=== PATIENT | male | born 1950 | race Caucasian/White ===

== ENCOUNTER 2016-07-22 03:26 | Inpatient (IN) | payer BC ==
[~2016-07-22] VITALS: Ht 172.7 cm; Wt 73.1 kg
[~2016-07-22 03:26] MED LIST: ASPI-535; LOSA50TA2 PO; VALA500T32
[2016-07-22 03:31] VITALS: Ht 172.7 cm; Wt 73.1 kg
[2016-07-22] MEDS ORDERED: IPRATROPIUM (NEB) 0.5 MG/2.5 ML AMP INH STA (03:39)
[2016-07-22] MEDS ORDERED: ACETAMINOPHEN 325 MG TAB PO STA (03:39)
[2016-07-22] MEDS ORDERED: SODIUM CHLORIDE 0.9% 1L BAG IV* STA (03:39)
[2016-07-22] MEDS ORDERED: ALBUTEROL 0.5% (NEB) 2.5 MG/0.5 ML AMP INH STA (03:39)
[2016-07-22 04:18] LABS: ADD SCAN DIFF NO
[2016-07-22 04:28] LABS: ABNORMAL IP MESSAGE 1; BASOPHILS % 0.3 % (0.0-2.0); EOSINOPHILS % 0.2 % (0.0-7.0); HEMATOCRIT 42.3 % (42.0-52.0); HEMOGLOBIN 14.8 g/dl (14.0-18.0); LYMPHOCYTES # 0.5 10^3/ul (0.8-2.9); LYMPHOCYTES % 5.8 % (15.0-51.0); MEAN CORPUSCULAR HEMOGLOBIN 33.3 pg (29.0-33.0); MEAN CORPUSCULAR VOLUME 95.3 fl (82.0-101.0); MEAN PLATELET VOLUME 10.2 fl (7.4-10.4); MONOCYTE # 0.2 10^3/ul (0.3-0.9); MONOCYTES % 2.8 % (0.0-11.0); NEUTROPHIL # 7.8 10^3/ul (1.6-7.5); NEUTROPHILS % 90.6 % (39.0-77.0); PLATELET COUNT 219 10^3/UL (140-415); RED BLOOD COUNT 4.44 10^6/ul (4.70-6.10); RED CELL DISTRIBUTION WIDTH 13.2 % (11.5-14.5); WHITE BLOOD COUNT 8.7 10^3/ul (4.8-10.8)
--- NOTE | 2016-07-22 04:28 | RADRPT ---
PROCEDURE: Chest. CLINICAL INDICATION: Chest pain. TECHNIQUE: Single frontal view of the chest was obtained. COMPARISON: 11/19/2015. FINDINGS: The cardiac silhouette is within normal limits. The aortic arch is unremarkable. There are increas ed perihilar markings bilaterally. There is no pleural effusion. There is no pneumothorax. IMPRESSION: Bilateral increased perihilar markings could represent interstitial edema or infiltrates. .Spenser Reyes MD, MD Date Time Electronically viewed and signed by .Spenser Reyes MD, MD on 07/22/2016 04:28 .T/
[2016-07-22 04:32] LABS: ADD UMIC NO; URINE BILIRUBIN (Dip) NEGATIVE (NEGATIVE); URINE BLOOD (Dip) NEGATIVE (NEGATIVE); URINE COLOR YELLOW (YELLOW); URINE GLUCOSE (Dip) NEGATIVE (NEGATIVE); URINE KETONES (Dip) NEGATIVE (NEGATIVE); URINE LEUKOCYTE ESTERASE (Dip) NEGATIVE (NEGATIVE); URINE NITRITE (Dip) NEGATIVE (NEGATIVE); URINE TOTAL PROTEIN (Dip) NEGATIVE (NEGATIVE); URINE UROBILINOGEN (Dip) 0.2 E.U./dL (0.1-1.0)
[2016-07-22 04:47] LABS: ALBUMIN 3.9 g/dl (3.3-4.9); CHLORIDE 103 mmol/L (97-110); SODIUM 143 mmol/L (135-144)
[2016-07-22 04:49] LABS: CREATININE 1.04 mg/dl (0.61-1.24)
[2016-07-22 04:50] LABS: ALANINE AMINOTRANSFERASE 33 IU/L (13-69); ALBUMIN/GLOBULIN RATIO 1.44; ALKALINE PHOSPHATASE 52 IU/L (42-121); ANION GAP 16 (8-16); ASPARTATE AMINO TRANSFERASE 30 IU/L (15-46); BILIRUBIN,INDIRECT 1.6 mg/dl (0-1.1); BILIRUBIN,TOTAL 1.6 mg/dl (0.2-1.3); BLOOD UREA NITROGEN 22 mg/dl (7-20); CALCIUM 9.1 mg/dl (8.4-10.2); CARBON DIOXIDE 28 mmol/L (21-31); GLUCOSE 113 mg/dl (70-220); TOTAL PROTEIN 6.6 g/dl (6.1-8.1)
[2016-07-22 04:51] LABS: INR 1.17; PARTIAL THROMBOPLASTIN TIME 26.2 Sec (25.0-35.0); PT RATIO 1.2
--- NOTE | 2016-07-22 05:32 | ERA ---
ER Documentation Chief Complaint Date/Time DATE: 07/22/16 TIME: 05:39 Chief Complaint COUGH OFF AND ON 2 MONTHS, FEVER CHILLS TONIGHT HPI Is a very pleasant 66-year-old gentleman who comes in with complaints of chills sudden onset tonight and then alternating fevers. Patient said is been struggling with a cough on and off for the past 2 months being treated by his primary care physician. Today he said his cough started becoming productive and he started having alternating fevers and chills. Also complains of body aches. No other current complaints. ROS All systems reviewed and are negative except as per history of present illness. Medications Home Meds Reported Medications Losartan Potassium* (Cozaar*) 50 Mg Tablet, 50 MG PO DAILY 11/14/11 Valacyclovir Hcl* (Valtrex*) 500 Mg Tablet 07/01/09 Aspirin Ec (Aspir 81) 81 Mg Tablet. 07/01/09 Allergies Allergies: Coded Allergies: No Known Drug Allergies (Verified Allergy, Mild, 07/22/16) PMhx/Soc History of Surgery: Yes (umbilical hernia repair, tonsillectomy) Anesthesia Reaction: No Hx Neurological Disorder: Yes (NEUROPATHY) Hx Respiratory Disorders: No Hx Cardiac Disorders: Yes (HTN) Hx Psychiatric Problems: No Hx Miscellaneous Medical Probl: Yes (dermomyositis) Hx Alcohol Use: Yes (occassional) Hx Substance Use: No Hx Tobacco Use: No Smoking Status: Never smoker Physical Exam Vitals Vital Signs Date Time Temp Pulse Resp B/P Pulse Ox O2 Delivery O2 Flow Rate FiO2 07/22/16 04:30 81 22 97 21 07/22/16 03:59 Nasal Cannula 07/22/16 03:31 102.3 92 22 176/74 97 Physical Exam Const: [] Head: Atraumatic Eyes: Normal Conjunctiva ENT: Normal External Ears, Nose and Mouth. Neck: Full range of motion..~ No meningismus. Resp: Clear to auscultation bilaterally Cardio: Regular rate and rhythm, no murmurs Abd: Soft, non tender, non distended. Normal bowel sounds Skin: No petechiae or rashes Back: No midline or flank tenderness Ext: No cyanosis, or edema Neur: Awake and alert Psych: Normal Mood and Affect Result Diagram: 07/22/16 0353 Results 24 hrs Laboratory Tests Test 07/22/16 03:53 07/22/16 03:55 Activated Partial Thromboplast Time 26.2Sec Basophils # 0.010^3/ul Basophils % 0.3% Eosinophils # 0.010^3/ul Eosinophils % 0.2% Hematocrit 42.3% Hemoglobin 14.8g/dl INR International Normalized Ratio 1.17 Lymphocytes # 0.510^3/ul Lymphocytes % 5.8% Mean Corpuscular Hemoglobin 33.3pg Mean Corpuscular Hemoglobin Concent 35.0g/dl Mean Corpuscular Volume 95.3fl Mean Platelet Volume 10.2fl Monocytes # 0.210^3/ul Monocytes % 2.8% Neutrophils # 7.810^3/ul Neutrophils % 90.6% Nucleated Red Blood Cells # 0.010^3/ul Nucleated Red Blood Cells % 0.0/100WBC Platelet Count 91597^3/UL Prothrombin Time 15.0Sec Prothrombin Time Ratio 1.2 Red Blood Count 4.4410^6/ul Red Cell Distribution Width 13.2% White Blood Count 8.710^3/ul Urine Bilirubin NEGATIVE Urine Clarity CLEAR Urine Color YELLOW Urine Glucose NEGATIVE% Urine Hemoglobin NEGATIVE Urine Ketones NEGATIVE Urine Leukocyte Esterase NEGATIVE Urine Nitrite NEGATIVE Urine Specific [place] >=1.030 Urine Total Protein NEGATIVE Urine Urobilinogen 0.2 E.U./dL Urine pH 5.5 Current Medications Medications (Trade) Dose Ordered Sig/Isaac Route PRN Reason Start Time Stop Time Status Last Admin Dose Admin Sodium Chloride (NS) 2,270 ml BOLUS OVER 2 HOURS STAT IV* 07/22/16 03:39 07/22/16 03:41 DC 07/22/16 04:14 Acetaminophen (Tylenol Tab) 650 mg ONCE STAT PO 07/22/16 03:39 07/22/16 03:42 DC 07/22/16 04:15 Albuterol (Proventil 0.5% (Neb)) 10 mg ONCE STAT INH 07/22/16 03:39 07/22/16 03:42 DC 07/22/16 04:29 Ipratropium Vancleave (Atrovent 0.02% (Neb)) 1 mg ONCE STAT INH 07/22/16 03:39 07/22/16 03:42 DC 07/22/16 04:29 Procedures/MDM EKG: Rate/Rhythm: Normal Sinus Rhythm QRS, ST, T-waves: No changes consistent w/ acute ischemia Impression: No evidence of ischemia or arrhythmia Chest X-ray 1V Interpreted by me: Soft Tissue: No acute abnormalities Bones: No acute abnormalities Mediastinum/Cardiac Silhouette/Lungs: Bilateral infiltrates. Impression: Bilateral pneumonia Medical decision-making: Patient has blisters bilateral pneumonia. Started on broad-spectrum antibiotics. Cultures. Patient to be admitted to primary care physician Dr. Franco who is kindly accepted the patient to service Departure Diagnosis: Primary Impression: Bilateral pneumonia Qualified Code: J18.9 - Pneumonia of both lungs due to infectious organism, unspecified part of lung Condition: Stable PEPE FULLER Jul 22, 2016 05:39
[2016-07-22 05:35] LABS: TROPONIN-I < 0.012 ng/ml (0.00-0.12)
[2016-07-22] MEDS ORDERED: PIPER-TAZO 3.375 GM IV (PMX) 100 ML IVPB ONE (06:00)
[2016-07-22] MEDS ORDERED: VANCOMYCIN 1 GM (PMX) 250 ML IVPB SCH (06:00)
[2016-07-22 06:22] VITALS: TEMP 100.1
[2016-07-22] MEDS ORDERED: IMU50 PO ×2 (07:16)
[2016-07-22] MEDS ORDERED: HYDR200T5 PO (07:18)
[2016-07-22 07:33] VITALS: PULSE 89
[2016-07-22 07:58] VITALS: BP 123/57; RESP 22
[2016-07-22] MEDS ORDERED: HYDROCODONE/APAP (5/325) TAB PO PRN (09:00)
[2016-07-22] MEDS ORDERED: NACL 0.9% 3 ML SYG IV SCH (09:00)
[2016-07-22] MEDS ORDERED: ACETAMINOPHEN 325 MG TAB PO PRN (09:00)
[2016-07-22] MEDS ORDERED: DOCUSATE SODIUM 100 MG CAP PO PRN (09:00)
[2016-07-22] MEDS ORDERED: ONDANSETRON 4 MG TAB PO PRN (09:00)
[2016-07-22] MEDS ORDERED: VANCOMYCIN IV PER PHARMACY XX SCH (09:00)
[2016-07-22 09:40] LABS: AADO2 Arterial 24.6 mmHg (7.0-24.0); Allen Test ACCEPTAB; Arterial Base Excess -1.9 mmol/L (-3.0-3); Arterial COHb 0.2 % (0.0-3.0); Arterial Fraction of Oxyhgb 95.9 % (93.0-99.0); Arterial HCO3 21.5 mmol/L (22.0-26.0); Arterial MetHb 0.1 % (0.0-1.5); Arterial Total Hemglobin 13.9 g/dl (12.0-18.0); MODE ROOM AIR
[2016-07-22] MEDS: AZITHROMYCIN 500MG/NS (PMX) 250 ML IV SCH (10:47)
[2016-07-22] MEDS: FAMOTIDINE 20 MG TAB PO SCH ×2 (10:48→20:41)
[2016-07-22] MEDS: CEFTRIAXONE 1 GM/50 ML (PMX) 50 ML IVPB SCH (10:48)
[2016-07-22] MEDS: HEPARIN 5,000 UNIT/0.5 ML SYG SC SCH ×2 (14:00→21:57)
[2016-07-22] MEDS: ALBUTEROL 0.083% (NEB) 2.5 MG/3 ML AMP HHN SCH ×2 (17:55→20:59)
[2016-07-22] MEDS: ACETYLCYSTEINE 20% 4 ML VIAL NEB SCH ×2 (18:01→21:07)
[2016-07-22] MEDS: VANCOMYCIN 750 MG in SOD CHLORIDE 0.9% 150 ML IVPB SCH (18:10)
[2016-07-22 19:00] VITALS: BP 111/58; RESP 18
[2016-07-22] MEDS: ZOLPIDEM 5 MG TAB PO PRN (21:23)
[2016-07-22] MEDS: GUAIFENESIN/DM 5ML CUP PO PRN (21:23)
--- NOTE | 2016-07-23 00:48 | HP ---
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 He had a bit of a bronchitis and actually was treated after a negative chest x-ray with an inhaler. Abisai de jesus note he is on some immunologic medications. He was doing well. His cough was better. His breath ing was better. Overnight from the to the 22 of July he developed the abrupt onset of a sig nificantly much more severe cough with scant sputum production and a temperature to 102 degrees with madelyn rigors and sweats. This was a first time event. He presented to the emergency room where he was advised he had bilateral pneumonia visible on the chest x-ray. Please note as an outpatient he is on azathioprine 100 in the morning, 50 in the afternoon and Plaquenil 200 b.i.d. He has had tra [place]eno out of the country roughly 2 months ago to the [facility]. 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 PAST MEDICAL HISTORY: 1. Dermatomyositis. 2. Benign positional vertigo, paroxysmal. 3. Peripheral neuropathy. 4. Hypertension. 5. History of HSV 2. 6. Status post left inguinal hernia repair. 7. Status post umbilical hernia repair. 8. Status post T and A. 9. Benign prostatic hypertrophy. 10. Remote history of prostatitis. 11. History of varicella. 12. Left knee torn meniscus. 13. Status post vasectomy. 14. Status post left knee arthroscopy. ALLERGIES: HE HAS NO KNOWN MEDICAL ALLERGIES. MEDICATIONS: His current medications are: 1. Plaquenil 200 b.i.d. 2. Imuran 100 mg in the morning, 50 mg in the evening. 3. Diovan 80 mg once a day. HABITS: He is a nonsmoker. He drinks 4 ounces of wine roughly 3 days a week or less. No usage of recreational drugs. FAMILY HISTORY: Positive for hypertension, positive for diabetes, positive for coronary artery dise ase. VACCINES: He had tetanus and pneumococcal vaccines 11/01/2010. SOCIAL HISTORY: He was born in [place] and raised there. 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 He was in 2010 and lives with his . PHYSICAL EXAMINATION: GENERAL: At time of physical exam, he is a charming male in no madelyn distress. VITAL SIGNS: He actually had temperature of 102.3 degrees, pulse was 90, respirations 20, blood pres sure 131/86, pulse oximetry is 98% on room air. HEENT: NC/AT; PERRL, EOMI, anicteric. Fundi were not well visualized; tympanic membranes were with out note; oropharynx demonstrates no lesions. NECK: Supple. There is a midline trachea. There is no thyromegaly; pulses are 2+ without bruits. RESPIRATORY: Clear to auscultation and percussion. CARDIAC: Demonstrated no JVD, regular rate and rhythm without rubs, murmurs or gallops. Respiratory exam did demonstrate some scattered wheezes. ABDOMEN: Soft, nontender, active bowel sounds, no hepatosplenomegaly, no CVA tenderness, no hernias , no bruits. EXTREMITIES: Demonstrate no clubbing, cyanosis, or edema. ASSESSMENT AND PLAN: Community-acquired pneumonia. The main concerns are that given the Imuran and Plaquenil there is a possibility that you could stretch and say he has immunocompromise. While it i s possible to see a granulocytosis or a leukopenia with the Plaquenil, he does not have this at this time. He is coming in with a fairly appropriate sepsis syndrome with a minimally elevated lactate, the high fevers, the tachycardia and the tachypnea and elevated white count. He is being placed on aggressive IV antibiotic therapy and will be monitored closely. We will go ahead and get a sputum culture and maintain him on his medications. With any luck he should actually turn around relativel y quickly and be able to be discharged within 48 hours. Respectfully yours, Dictated By: JOSEF VAN MD, JR/MALINDA Conf#: [id number] DID#: [id number]
[2016-07-23] MEDS: ALBUTEROL 0.083% (NEB) 2.5 MG/3 ML AMP HHN SCH ×4 (02:00→20:52)
[2016-07-23] MEDS: ACETYLCYSTEINE 20% 4 ML VIAL NEB SCH ×4 (02:00→20:53)
[2016-07-23] MEDS: HEPARIN 5,000 UNIT/0.5 ML SYG SC SCH ×3 (04:46→22:00)
[2016-07-23] MEDS: VANCOMYCIN 750 MG in SOD CHLORIDE 0.9% 150 ML IVPB SCH ×2 (05:31→18:01)
[2016-07-23 06:09] LABS: ADD SCAN DIFF NO; BASOPHILS % 0.3 % (0.0-2.0); EOSINOPHILS # 0.1 10^3/ul (0.0-0.5); EOSINOPHILS % 1.3 % (0.0-7.0); HEMATOCRIT 38.3 % (42.0-52.0); HEMOGLOBIN 13.1 g/dl (14.0-18.0); LYMPHOCYTES # 0.8 10^3/ul (0.8-2.9); MEAN CORPUSCULAR HEMOGLOBIN 33.6 pg (29.0-33.0); MEAN CORPUSCULAR HGB CONC 34.2 g/dl (32.0-37.0); MEAN CORPUSCULAR VOLUME 98.2 fl (82.0-101.0); MEAN PLATELET VOLUME 10.2 fl (7.4-10.4); MONOCYTE # 0.5 10^3/ul (0.3-0.9); MONOCYTES % 7.2 % (0.0-11.0); NEUTROPHIL # 4.9 10^3/ul (1.6-7.5); NEUTROPHILS % 78.9 % (39.0-77.0); PLATELET COUNT 165 10^3/UL (140-415); RED CELL DISTRIBUTION WIDTH 13.5 % (11.5-14.5); WHITE BLOOD COUNT 6.2 10^3/ul (4.8-10.8)
[2016-07-23 06:27] LABS: POTASSIUM 4.3 mmol/L (3.5-5.1)
[2016-07-23 06:30] LABS: CALCIUM 8.9 mg/dl (8.4-10.2); CREATININE 0.9 mg/dl (0.61-1.24)
[2016-07-23 07:43] VITALS: BP 138/67; RESP 20
--- NOTE | 2016-07-23 08:21 | RADRPT ---
Vent Rate: 56 bpm RR Interval: 0 msec MA Interval: 156 msec QRS Duration: 138 msec QT Interval: 464 msec QTC Interval: 447 msec P-R-T [place]: 54 - 54 - 0 degrees Sinus bradycardia Right bundle branch block T wave abnormality, consider inferolateral ischemia Abnormal ECG Electronically Signed By: Jason Maldonado [id number]
--- NOTE | 2016-07-23 08:42 | PN ---
Date/Time of Note Date/Time of Note DATE: 07/23/16 TIME: 08:40 Assessment/Plan VTE Prophylaxis VTE Prophylaxis Intervention: heparin Lines/Catheters IV C[facility]ter Type [facility]from [facility] [place] [facility] Urinary Cath still in place: No Assessment/Plan Problems: (1) BPH (benign prostatic hypertrophy) with urinary retention Status: Chronic Comment: Resume tamsulosin. He had been on outpatient low-dose 5 mg daily Cialis which is not on the hospital formulary (2) Bilateral pneumonia Status: Acute Comment: He is improving subjectively and objectively nicely. Blood cultures are positive but on initial glance this looks like contamination which is not unusual from the technique from our emergency room Qualifiers: Pneumonia type: due to unspecified organism Lung location: unspecified part of lung Qualified Code: J18.9 - Pneumonia of both lungs due to infectious organism, unspecified part of lung (3) Systemic inflammatory response syndrome (SIRS) due to infection Status: Resolved Comment: Improved nicely lactic acid resolved he is no longer in sepsis Subjective 24 Hr Interval Summary Free Text/Dictation Patient reports he is feeling better Constitutional: no complaints (No further fevers chills or sweats) ENT: no complaints Respiratory: cough (Cough persists but nonproductive and last), shortness of breath (Shortness of breath has improved) Cardiovascular: no complaints Gastrointestinal: no complaints Genitourinary: no complaints Exam/Review of Systems Vital Signs Vitals Vital Signs Date Time Temp Pulse Resp B/P Pulse Ox O2 Delivery O2 Flow Rate FiO2 07/23/16 07:43 98.2 59 20 138/67 99 07/22/16 20:59 21 07/22/16 07:33 Room Air Intake and Output 07/22/16 07/22/16 07/23/16 15:00 23:00 07:00 Intake Total 300 ml 320 ml 480 ml Balance 300 ml 320 ml 480 ml Results Result Diagram: 07/23/16 0500 07/23/16 0520 Results 24 hrs Laboratory Tests Test 07/23/16 05:00 07/23/16 05:20 Basophils # 0.0 Basophils % 0.3 Eosinophils # 0.1 Eosinophils % 1.3 Hematocrit 38.3 L Hemoglobin 13.1 L Lymphocytes # 0.8 Lymphocytes % 12.0 L Mean Corpuscular Hemoglobin 33.6 H Mean Corpuscular Hemoglobin Concent 34.2 Mean Corpuscular Volume 98.2 Mean Platelet Volume 10.2 Monocytes # 0.5 Monocytes % 7.2 Neutrophils # 4.9 Neutrophils % 78.9 H Nucleated Red Blood Cells # 0.0 Nucleated Red Blood Cells % 0.0 Platelet Count 165 # Red Blood Count 3.90 L Red Cell Distribution Width 13.5 White Blood Count 6.2 # Anion Gap 13 Blood Urea Nitrogen 16 Calcium Level 8.9 Carbon Dioxide Level 28 Chloride Level 109 Creatinine 0.90 Glucose Level 96 Potassium Level 4.3 Sodium Level 146 H Medications Medications Current Medications Ondansetron HCl (Zofran Tab) 4 mg Q6H PRN PO NAUSEA AND/OR VOMITING; Start at 09:00 Acetaminophen (Tylenol Tab) 650 mg Q6H PRN PO PAIN LEVEL 1-3 OR FEVER Last administered on 07/22/16 16:22; Admin Dose 650 MG; Start 07/22/16 at 09:00 Acetaminophen/ Hydrocodone Bitart ([place] (5/325)) 1 tab Q6H PRN PO MODERATE PAIN LEVEL 4-6; Start 07/22/16 at 09:00 Docusate Sodium (Colace) 100 mg Q12H PRN PO CONSTIPATION; Start 07/22/16 at 09: 00 Famotidine (Pepcid) 20 mg Q12 PO Last administered on 07/22/16 20:41; Admin Dose 20 MG; Start 07/22/16 at 09:00 Heparin Sodium (Porcine) 5000 unit 5,000 unit Q8 SC ; Start 07/22/16 at 14:00 Ceftriaxone Sodium 50 ml @ 100 mls/hr Q24H IVPB Last administered on 10:48; Admin Dose 100 MLS/HR; Start 07/22/16 at 09:00 Azithromycin 250 ml @ 250 mls/hr Q24H IV Last administered on 07/22/16 10:47 ; Admin Dose 250 MLS/HR; Start 07/22/16 at 09:00 Vancomycin HCl/ Sodium Chloride (Vancocin/NS) 150 ml @ 75 mls/hr Q12H IVPB Last administered on 07/23/16 05:31; Admin Dose 75 MLS/HR; Start 07/22/16 at 18 :00 Guaifenesin/ Dextromethorphan (Robitussin Dm Liquid Cup) 15 ml Q6H PRN PO COUGH Last administered on 07/22/16t 21:23; Admin Dose 15 ML; Start 07/22/16 at 16:30 JOSEF VAN MD Jul 23, 2016 08:42
[2016-07-23] MEDS: CEFTRIAXONE 1 GM/50 ML (PMX) 50 ML IVPB SCH (08:46)
[2016-07-23] MEDS: FAMOTIDINE 20 MG TAB PO SCH ×2 (08:48→20:12)
[2016-07-23] MEDS ORDERED: TAMSULOSIN (SR) 0.4 MG CAP PO ONE (09:00)
[2016-07-23] MEDS: GUAIFENESIN/DM 5ML CUP PO PRN (10:05)
[2016-07-23] MEDS: AZITHROMYCIN 500MG/NS (PMX) 250 ML IV SCH (10:06)
[2016-07-23] MEDS: AZATHIOPRINE 50 MG TAB PO SCH (10:06)
[2016-07-23] MEDS: HYDROXYCHLOROQUINE 200 MG TAB PO SCH ×2 (10:16→20:12)
--- NOTE | 2016-07-23 10:20 | RADRPT ---
PROCEDURE: XR Chest. CLINICAL INDICATION: Follow up pneumonia. TECHNIQUE: AP view of the chest was obtained. COMPARISON: 07/22/2016 FINDINGS: The cardiomediastinal silhouette is within normal limits. There is redemonstration of bilateral americo hilar streaky infiltrates, slightly improved compared to the prior examination on 07/22/2016. No fo leanne consolidation is seen. No signs of pleural fluid or pneumothorax are seen. The osseous structure s and soft tissues are unremarkable. IMPRESSION: 1. Redemonstration of bilateral perihilar patchy infiltrates, slightly improved compared to prior e xamination from 05/23/2016. RPTAT: DD .Issa Batres MD, MD Date Time Electronically viewed and signed by .Issa Batres MD, on 07/23/2016 10:20 .S/
[2016-07-23 19:41] VITALS: BP 113/80; RESP 20
[2016-07-23 20:00] VITALS: RESP 20
[2016-07-23] MEDS: TAMSULOSIN (SR) 0.4 MG CAP PO SCH (20:12)
[2016-07-24] MEDS ORDERED: LIDOCAINE 2% JELLY 30 ML TOP ONE ×2 (00:10→04:45)
[2016-07-24] MEDS: ACETYLCYSTEINE 20% 4 ML VIAL NEB SCH ×4 (01:04→20:00)
[2016-07-24] MEDS: ALBUTEROL 0.083% (NEB) 2.5 MG/3 ML AMP HHN SCH ×4 (01:04→20:00)
[2016-07-24] MEDS: VANCOMYCIN 750 MG in SOD CHLORIDE 0.9% 150 ML IVPB SCH ×3 (01:38→18:18)
[2016-07-24] MEDS ORDERED: morphine 10 MG INJ INJ PRN (05:23)
[2016-07-24] MEDS ORDERED: LORAZEPAM 0.5 MG TAB PO PRN (05:30)
[2016-07-24] MEDS: morphine 2 MG INJ IV PRN ×2 (05:34→07:27)
[2016-07-24] MEDS: HEPARIN 5,000 UNIT/0.5 ML SYG SC SCH ×3 (06:00→21:16)
[2016-07-24 08:06] VITALS: BP 141/87; RESP 18
[2016-07-24] MEDS: FAMOTIDINE 20 MG TAB PO SCH ×2 (08:10→21:04)
[2016-07-24] MEDS: AZATHIOPRINE 50 MG TAB PO SCH (08:10)
[2016-07-24] MEDS: HYDROXYCHLOROQUINE 200 MG TAB PO SCH ×2 (08:10→21:04)
[2016-07-24] MEDS: CEFTRIAXONE 1 GM/50 ML (PMX) 50 ML IVPB SCH (08:10)
[2016-07-24] MEDS: AZITHROMYCIN 500MG/NS (PMX) 250 ML IV SCH (09:06)
--- NOTE | 2016-07-24 10:41 | CONS ---
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 He was admitted w ith a temperature of 102. The patient has been treated for his bronchitis and yesterday he started having difficulty urinating, where he has to urinate frequently and small amounts. Then, he was fou nd to have urinary retention and straight catheterization was done on him and about 700 mL drained. Last night, he had the same problem where he could not urinate. The nurses had difficulty catheter izing him and then I had them use a red Schaffer catheter and they were able to catheterize him arou nd 1:00 this morning and drained about 600 mL. Then, the patient 3 hours later he felt full again a nd they tried to catheterize him and they were meeting some resistance. Therefore, they stopped try ing and I came in this morning and did insert a Soria catheter for him and over 700 mL to 900 mL yordy ined out. The patient does have a history of difficulty voiding in the past, where there were times that he could not hold his urine and he had urinary urgency. He usually does have nocturia about o nce a night. He denies any dysuria. He describes his urinary stream as fair. He has been taking 5 mg of Cialis daily for the past 2 to 3 years and that does help his urination. He had one time abo ut 6 years ago 1 episode of gross hematuria that was painful, most likely had an infection. PAST MEDICAL HISTORY: He does have a history of dermatomyositis and is on medication for that. He also has benign positional vertigo, peripheral neuropathy, history of hypertension, history of herpe s virus type 2, history of varicella. PAST SURGICAL HISTORY: Includes a left inguinal hernia repair, umbilical hernia repair, tonsillecto my, history of vasectomy and left knee arthroscopy for torn meniscus. ALLERGIES: THE PATIENT HAS NO KNOWN DRUG ALLERGIES. SOCIAL HISTORY: He does not smoke. He drinks about 4 ounces of wine 3 days a week. No history of drug abuse. FAMILY HISTORY: Positive for hypertension, diabetes and coronary artery disease. HOME MEDICATIONS: Included: 1. Plaquenil 200 mg twice a day. 2. Imuran 100 mg in the morning and 50 mg in the evening 3. Diovan 80 mg once a day. 4. He also has been taking a baby aspirin. 5. Vitamin A. 6. Fish oil. The medication that he is on presently include: 1. Lorazepam 0.5 mg every 6 hours for anxiety. 2. Morphine sulfate 2 mg p.r.n. for pain. 3. Vancomycin IV. 4. Tamsulosin 0.4 mg. 5. Plaquenil 200 mg b.i.d. 6. Imuran 50 mg daily. 7. Ambien 5 mg for sleep at bedtime. 8. Albuterol q.6h. 9. Robitussin for cough. 10. Subcutaneous Heparin. 11. Mucomyst. 12. Zofran p.r.n. for nausea 13. Tylenol for the pain. 14. [place] for the pain. 15. Pepcid 20 mg q.12h. p.o. 16. Ceftriaxone IV. 17. Azithromycin IV. 18. Vancomycin per protocol. PHYSICAL EXAMINATION: GENERAL: Reveals a 66-year-old male who weighs about 73.1 kg. He is 68 inches tall. VITAL SIGNS: Show a temperature of 98.4, pulse 76, respirations 18, blood pressure 141/87. NECK: Supple. There is no cervical adenopathy. ABDOMEN: Soft. There is no abdominal mass palpable or tenderness. There are no hernias. He does have a scar from prior hernia repair. EXTERNAL GENITALIA: Normal. The bladder; however, appeared to be distended. RECTAL: The prostate is soft but large. The prostate had been evaluated in the office previously a nd it is about 40 mL volume cadena. It is mildly enlarged, but not too large. EXTREMITIES: Normal. LABORATORY DATA: His CBC shows a white count of 6.2, hemoglobin 13.1, hematocrit 38.3, platelet cou nt 165,000. BUN is 16, creatinine 0.9, sodium 146, potassium 4.3, chloride 109, CO2 of 28. PT is 1 5.0, INR 1.17. Urinalysis on admission was negative. Urine culture no growth. The chest x-ray that was done on admission showed bilateral increased perihilar markings that could represent interstitial edema or infiltrates. The patient also had a repeated chest x-ray today that showed redemonstration of bilateral perihilar patchy infiltrates, slightly improved compared to susy or examination from 2 days earlier. IMPRESSION: Urinary retention. The patient does have benign prostatic hypertrophy, but the prostat e is not too big to cause retention by itself. RECOMMENDATION: I went ahead and inserted a 16-Serbian Soria catheter for him. I did prep the genit al area, then gave him 2% lidocaine gel. I waited for it for 5 minutes. Then, inserted the 16-Fren ch Soria catheter without any problem and about 900 mL of urine drained out. The Soria catheter was connected to a drainage bag. We shall keep the Soria catheter in for now and continue him on the Flomax. 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 Dictated By: KRISTOFER JOHNSON/MALINDA Conf#: [id number] DID#: [id number]
--- NOTE | 2016-07-24 16:34 | PDOCDIS ---
Discharge Instructions CONDITION Patient Condition: Stable HOME CARE INSTRUCTIONS: Diet Instructions: Regular ACTIVITY: Activity Restrictions: Slowly Increase Activity FOLLOW UP/APPOINTMENTS Appointments Dr. Franco [address] Siddiqui as scheduled SCHOOL/WORK RELEASE May return to School/Work with: Return to work once cleared by Drs. Siddiqui and BLU Hernandez MD Jul 24, 2016 16:34
--- NOTE | 2016-07-24 16:41 | PN ---
Date/Time of Note Date/Time of Note DATE: 07/24/16 TIME: 16:36 Assessment/Plan VTE Prophylaxis VTE Prophylaxis Intervention: ambulation Lines/Catheters IV [facility]ter [facility] (from [facility] Saline Lock Urinary Cath still in place: Yes (urinary retention) Reason Cath still needed: urinary retention Assessment/Plan Problems: (1) Bilateral pneumonia Status: Acute Comment: On antibiotic therapy. Slight improvement in chest X-ray findings on yesterday's X-ray. 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 Siddiqui participation in this case. Patient will be discharged home with zhang catheter in place to be followed up as outpatient. (3) Systemic inflammatory response syndrome (SIRS) due to infection Status: Resolved Subjective 24 Hr Interval Summary Constitutional: no complaints Eyes: no complaints ENT: no complaints Respiratory: cough, pleuritic pain (none), shortness of breath (minimal), sputum (none), wheezing (none) Cardiovascular: no complaints Gastrointestinal: no complaints Genitourinary: other (retention) Musculoskeletal: no complaints Skin: no complaints Neurologic: no complaints Endocrine: no complaints Lymphatic: no complaints Psychological: no complaints Immunologic: no complaints Additional Comments anxious to go home Exam/Review of Systems Vital Signs Vitals Vital Signs Date Time Temp Pulse Resp B/P Pulse Ox O2 Delivery O2 Flow Rate FiO2 07/24/16 08:06 98.4 76 18 141/87 99 07/24/16 01:04 21 07/22/16 07:33 Room Air Intake and Output 07/23/16 07/23/16 07/24/16 15:00 23:00 07:00 Intake Total 150 ml 1910 ml 150 ml Output Total 1100 ml 700 ml Balance 150 ml 810 ml -550 ml Exam Constitutional: alert, oriented, well developed Psych: no complaints Head: normocephalic Eyes: EOMI, PERRL, nl conjunctiva Neck: supple Respiratory: clear to auscultation, crackles/rales (none), normal air movement , wheezing (none) Cardiovascular: nl pulses, regular rate and rhythm Gastrointestinal: soft Genitourinary - Male: nl penis (zhang in place) Musculoskeletal: nl extremities to inspection Extremities: normal pulses Results Result Diagram: 07/23/16 0500 07/23/16 0520 Results 24 hrs Laboratory Tests Test 07/23/16 16:45 07/24/16 12:40 Vancomycin Level Trough 6.8 L Prostate Specific Antigen 10.8 H Medications Medications Current Medications Ondansetron HCl (Zofran Tab) 4 mg Q6H PRN PO NAUSEA AND/OR VOMITING; Start at 09:00 Acetaminophen (Tylenol Tab) 650 mg Q6H PRN PO PAIN LEVEL 1-3 OR FEVER Last administered on 07/22/16 16:22; Admin Dose 650 MG; Start 07/22/16 at 09:00 Acetaminophen/ Hydrocodone Bitart ([place] (5/325)) 1 tab Q6H PRN PO MODERATE PAIN LEVEL 4-6 Last administered on 07/23/16 21:59; Admin Dose 1 TAB; Start at 09:00 Docusate Sodium (Colace) 100 mg Q12H PRN PO CONSTIPATION; Start 07/22/16 at 09: 00 Famotidine (Pepcid) 20 mg Q12 PO Last administered on 07/24/16 08:10; Admin Dose 20 MG; Start 07/22/16 at 09:00 Heparin Sodium (Porcine) 5000 unit 5,000 unit Q8 SC ; Start 07/22/16 at 14:00 Ceftriaxone Sodium 50 ml @ 100 mls/hr Q24H IVPB Last administered on 08:10; Admin Dose 100 MLS/HR; Start 07/22/16 at 09:00 Azithromycin (Zithromax 500mg/ NS (Pmx)) 250 ml @ 250 mls/hr Q24H IV Last administered on 07/24/16 09:06; Admin Dose 250 MLS/HR; Start 07/22/16 at 09:00 Guaifenesin/ Dextromethorphan (Robitussin Dm Liquid Cup) 15 ml Q6H PRN PO COUGH Last administered on 07/23/16 10:05; Admin Dose 15 ML; Start 07/22/16 at 16:30 Tamsulosin HCl (Flomax) 0.4 mg HS PO Last administered on 07/23/16 20:12; Admin Dose 0.4 MG; Start 07/23/16 at 21:00 Hydroxychloroquine Sulfate (Plaquenil) 200 mg BID PO Last administered on 08:10; Admin Dose 200 MG; Start 07/23/16 at 09:00 Azathioprine 50 mg 50 mg DAILY PO Last administered on 07/24/16 08:10; Admin Dose 50 MG; Start 07/23/16 at 09:00 Vancomycin HCl/ Sodium Chloride (Vancocin/NS) 150 ml @ 75 mls/hr Q8H IVPB Last administered on 07/24/16 10:50; Admin Dose 75 MLS/HR; Start 07/24/16 at 02 :00 Lorazepam (Ativan) 0.5 mg Q6H PRN PO ANXIETY Last administered on 07/24/16 06: 51; Admin Dose 0.5 MG; Start 07/24/16 at 05:30 Morphine Sulfate (morphine) 2 mg Q2H PRN IV PAIN Last administered on 07:27; Admin Dose 2 MG; Start 07/24/16 at 05:28 Miscellaneous Information (*Rx Drug Level Order Reminder*) VANCOMYCIN TROUGH AT 1700 ONCE ONCE XX ; Start 07/24/16 at 17:00; Stop 07/24/16 at 17:01 BLU THOMPSON MD Jul 24, 2016 16:41
[2016-07-24 20:45] VITALS: BP 130/72; RESP 20
[2016-07-24] MEDS: ZOLPIDEM 5 MG TAB PO PRN (21:04)
[2016-07-24] MEDS: GUAIFENESIN/DM 5ML CUP PO PRN (21:04)
[2016-07-24] MEDS: TAMSULOSIN (SR) 0.4 MG CAP PO SCH (21:04)
[2016-07-25] MEDS: ALBUTEROL 0.083% (NEB) 2.5 MG/3 ML AMP HHN SCH ×2 (01:10→07:32)
[2016-07-25] MEDS: ACETYLCYSTEINE 20% 4 ML VIAL NEB SCH ×2 (01:11→07:33)
[2016-07-25] MEDS: VANCOMYCIN 1 GM in NS 250 ML IVPB SCH ×2 (02:06→10:00)
[2016-07-25] MEDS: HEPARIN 5,000 UNIT/0.5 ML SYG SC SCH (05:07)
[2016-07-25 06:14] LABS: CREATININE 0.81 mg/dl (0.61-1.24)
--- NOTE | 2016-07-25 07:31 | RADRPT ---
PROCEDURE: Chest Radiograph. CLINICAL INDICATION: Pneumonia TECHNIQUE: Single frontal chest radiograph. COMPARISON: Chest radiograph 07/23/2016 FINDINGS: The cardiomediastinal silhouette is within normal limits. There are improving bilateral perihilar i nfiltrates, with near complete resolution on the left. No pleural effusion is seen. The bones are intact. IMPRESSION: 1. Improving perihilar infiltrates, with near complete resolution on the left. RPTAT: HJBF .Clifford Meza MD, MD Date Time Electronically viewed and signed by .Clifford Meza MD, on 07/25/2016 07:31 .B/
[2016-07-25 07:47] VITALS: BP 139/74; RESP 20
[2016-07-25] MEDS: AZATHIOPRINE 50 MG TAB PO SCH (08:20)
[2016-07-25] MEDS: FAMOTIDINE 20 MG TAB PO SCH (08:20)
[2016-07-25] MEDS: HYDROXYCHLOROQUINE 200 MG TAB PO SCH (08:20)
[2016-07-25] MEDS: GUAIFENESIN/DM 5ML CUP PO PRN (08:20)
[2016-07-25] MEDS: CEFTRIAXONE 1 GM/50 ML (PMX) 50 ML IVPB SCH (08:20)
--- NOTE | 2016-07-25 09:06 | PN ---
Date/Time of Note Date/Time of Note DATE: 07/25/16 TIME: 09:00 Assessment/Plan VTE Prophylaxis VTE Prophylaxis Intervention: ambulation Lines/Catheters IV Catheter Type (from Nrsg): Saline Lock Urinary Cath still in place: Yes (urinary retention) Reason Cath still needed: urinary retention Subjective 24 Hr Interval Summary Free Text/Dictation afebrile, some cough xray essentially clear wbc, chems all ok up and walking, fern catheter ok alert, lungs clear, hands ok, no edema, catheter draining normally imp is resolving pneumonia, prob community aquired tho is on immunosuppression dermatomyositis bph with urinary retention plan ok for dc after antibiotics today, can dc afterwards and no vanco today off work until a week from Thursday, dc catheter on thursday and follow up with dr sandoval see us in office snext week for repeat cxr, call if fever or increasing cough Exam/Review of Systems Vital Signs Vitals Vital Signs Date Time Temp Pulse Resp B/P Pulse Ox O2 Delivery O2 Flow Rate FiO2 07/25/16 07:47 97.9 71 20 139/74 95 07/25/16 07:35 21 07/22/16 07:33 Room Air Intake and Output 07/24/16 07/24/16 07/25/16 14:59 22:59 06:59 Intake Total 150 ml 950 ml 250 ml Output Total 800 ml Balance 150 ml 150 ml 250 ml Results Result Diagram: 07/23/16 0500 07/25/16 0515 Results 24 hrs Laboratory Tests Test 07/24/16 12:40 07/24/16 17:00 07/25/16 05:15 Prostate Specific Antigen 10.8 H Vancomycin Level Trough 9.4 L Blood Urea Nitrogen 12 Creatinine 0.81 Medications Medications Current Medications Ondansetron HCl (Zofran Tab) 4 mg Q6H PRN PO NAUSEA AND/OR VOMITING; Start at 09:00 Acetaminophen (Tylenol Tab) 650 mg Q6H PRN PO PAIN LEVEL 1-3 OR FEVER Last administered on 07/22/16 16:22; Admin Dose 650 MG; Start 07/22/16 at 09:00 Acetaminophen/ Hydrocodone Bitart ([place] (5/325)) 1 tab Q6H PRN PO MODERATE PAIN LEVEL 4-6 Last administered on 07/23/16 21:59; Admin Dose 1 TAB; Start at 09:00 Docusate Sodium (Colace) 100 mg Q12H PRN PO CONSTIPATION; Start 07/22/16 at 09: 00 Famotidine (Pepcid) 20 mg Q12 PO Last administered on 07/25/16 08:20; Admin Dose 20 MG; Start 07/22/16 at 09:00 Heparin Sodium (Porcine) 5000 unit 5,000 unit Q8 SC ; Start 07/22/16 at 14:00 Ceftriaxone Sodium 50 ml @ 100 mls/hr Q24H IVPB Last administered on 08:20; Admin Dose 100 MLS/HR; Start 07/22/16 at 09:00 Azithromycin (Zithromax 500mg/ NS (Pmx)) 250 ml @ 250 mls/hr Q24H IV Last administered on 07/24/16 09:06; Admin Dose 250 MLS/HR; Start 07/22/16 at 09:00 Guaifenesin/ Dextromethorphan (Robitussin Dm Liquid Cup) 15 ml Q6H PRN PO COUGH Last administered on 07/25/16 08:20; Admin Dose 15 ML; Start 07/22/16 at 16:30 Tamsulosin HCl (Flomax) 0.4 mg HS PO Last administered on 07/24/16 21:04; Admin Dose 0.4 MG; Start 07/23/16 at 21:00 Hydroxychloroquine Sulfate (Plaquenil) 200 mg BID PO Last administered on 08:20; Admin Dose 200 MG; Start 07/23/16 at 09:00 Azathioprine (Imuran) 50 mg DAILY PO Last administered on 07/25/16 08:20; Admin Dose 50 MG; Start 07/23/16 at 09:00 Lorazepam (Ativan) 0.5 mg Q6H PRN PO ANXIETY Last administered on 07/24/16 06: 51; Admin Dose 0.5 MG; Start 07/24/16 at 05:30 Morphine Sulfate 2 mg 2 mg Q2H PRN IV PAIN Last administered on 07/24/16 07:27 ; Admin Dose 2 MG; Start 07/24/16 at 05:28 Vancomycin HCl (Vancocin) 250 ml @ 125 mls/hr Q8H IVPB Last administered on 02:06; Admin Dose 125 MLS/HR; Start 07/25/16 at 02:00 BRENDA EDWARDS MD Jul 25, 2016 09:06
[2016-07-25] MEDS: AZITHROMYCIN 500MG/NS (PMX) 250 ML IV SCH (09:07)
== END 2016-07-25 12:05 | disposition home or self-care (01) | DRG 195 ==
LOC: E/R 03:26 → MS2 05:34
PROVIDERS: ADMIT Internal Medicine; ATTEND Internal Medicine
DX: J18.9 Pneumonia, unspecified organism (principal); I10 Essential (primary) hypertension; R33.9 Retention of urine, unspecified; N40.0 Benign prostatic hyperplasia without lower urinary tract symptoms
CPT/HCPCS: 36415; 36600; 71010; 71020; 80048; 80053; 80202; 81003; 82565; 82803; 83605; 84153; 84154; 84484; 84520; 85025; 85610; 85730; 87040; 87086; 93005; 94640; 94644; 94664; 96374; 96375; A4310; J0456; J0696; J1644; J2270; J3370; J7030; J7500

== ENCOUNTER 2016-07-27 17:17 | Emergency (ER) | payer BC ==
[~2016-07-27] VITALS: Ht 172.7 cm; Wt 74.0 kg
[~2016-07-27 17:17] MED LIST changes: +HYDR200T5 PO; +IMU50 PO; -LOSA50TA2 PO; -VALA500T32
[2016-07-27 17:20] VITALS: Ht 172.7 cm; Wt 74.0 kg
[2016-07-27] MEDS ORDERED: LIDOCAINE 2% 20 ML UROJET SYRINGE MM ONE (17:30)
--- NOTE | 2016-07-27 17:34 | ERD ---
ER Documentation Chief Complaint Date/Time DATE: 07/27/16 TIME: 17:32 Chief Complaint Complains of inability HPI Very pleasant 66-year-old male history of BPH who presents emergency room with urinary retention. The patient was recently seen for urinary retention and had a Soria catheter. He self discontinued today with a trial of urination without success. He describes lower suprapubic abdominal distention and fullness. Inability to urinate. Moderate discomfort. ROS All systems reviewed and are negative except as per history of present illness. Medications Home Meds Reported Medications Hydroxychloroquine Sulfate* (Plaquenil*) 200 Mg Tab, 400 MG PO DAILY, TAB 07/22/16 Azathioprine* (Imuran*) 50 Mg Tab, 50 MG PO QPM, TAB 07/22/16 Azathioprine* (Imuran*) 50 Mg Tab, 100 MG PO QAM, TAB 07/22/16 Aspirin Ec (Aspir 81) 81 Mg Tablet. 07/01/09 Discontinued Reported Medications Losartan Potassium* (Cozaar*) 50 Mg Tablet, 50 MG PO DAILY 11/14/11 Valacyclovir Hcl* (Valtrex*) 500 Mg Tablet 07/01/09 Allergies Allergies: Coded Allergies: No Known Drug Allergies (Verified Allergy, Mild, 07/22/16) PMhx/Soc History of Surgery: Yes (tonsileectomy, umbilical hernia repair , imguinal hernia repair 2008) Anesthesia Reaction: No Hx Neurological Disorder: Yes (slight lower ext neuropathy tx with chircopracter) Hx Respiratory Disorders: Yes (bronchitis ) Hx Cardiac Disorders: Yes (htn ) Hx Psychiatric Problems: No Hx Miscellaneous Medical Probl: No Hx Alcohol Use: Yes (1 glass wine daily ) Hx Substance Use: No Hx Tobacco Use: No FmHx Family History: No diabetes Physical Exam Vitals Vital Signs Date Time Temp Pulse Resp B/P Pulse Ox O2 Delivery O2 Flow Rate FiO2 07/27/16 17:20 97.7 82 20 190/83 98 Physical Exam General: Well developed, well nourished, no acute distress Head: Normocephalic, atraumatic. Eyes: EOM intact ENT: Moist mucous membranes Neck: Full ROM Respiratory: No respiratory distress Cardiovascular: Good capillary refil Abdominal: Nondistended, suprapubic fullness without rebound or guarding, no peritonitis : Deferred MSK: No edema, no unilateral swelling, 5/5 strength Neurologic: Alert and oriented, moving all extremities, normal speech, steady gait Skin: No rash Psych: Normal mood Results 24 hrs Current Medications Medications (Trade) Dose Ordered Sig/Isaac Route PRN Reason Start Time Stop Time Status Last Admin Dose Admin Lidocaine (Lidocaine 2% Urojet) 20 ml ONCE ONCE MM 07/27/16 17:30 07/27/16 17:31 DC Procedures/MDM The patient presents with urinary retention likely secondary to BPH. The patient has a urologist. He is taking Flomax. He had a trial of urination today with failure. Patient will benefit from repeat placement of Soria catheter. A Soria catheter was placed, the patient was given a leg bag. No indication for antibiotics currently. He has close follow-up with the urologist. Continue Flomax. Return precautions discussed. The patient states understanding and feels comfortable with the plan. We discussed follow up with the patient's primary care doctor within 24 to 48 hours as needed. We also discussed return to the emergency room for worsening symptoms or worsening condition. Outpatient referral: Dr. Siddiqui Discharge Medications: None required Departure Diagnosis: Primary Impression: Urinary retention Condition: Stable Patient Instructions: Urinary Retention, Male Referrals: KRISTOFER SIDDIQUI MD Additional Instructions: Call your primary care doctor TOMORROW for an appointment during the next 1 WEEK.Tell the medical unit secretary that you were referred from this facility.See the doctor sooner or return here if your condition worsens before your appointment time. DAVID OWEN MD Jul 27, 2016 17:34
== END 2016-07-27 18:19 | disposition home or self-care (01) ==
LOC: E/R 17:17
DX: R33.9 Retention of urine, unspecified (principal); I10 Essential (primary) hypertension; Z79.82 Long term (current) use of aspirin

== ENCOUNTER → 2016-09-20 | Outpatient (CLI) | payer BC ==
[2016-09-20 15:21] LABS: ADD SCAN DIFF NO
[2016-09-20 15:37] LABS: BASOPHILS % 0.7 % (0.0-2.0); EOSINOPHILS % 0.9 % (0.0-7.0); HEMATOCRIT 43.8 % (42.0-52.0); HEMOGLOBIN 15.4 g/dl (14.0-18.0); LYMPHOCYTES # 0.8 10^3/ul (0.8-2.9); LYMPHOCYTES % 18.1 % (15.0-51.0); MEAN CORPUSCULAR HEMOGLOBIN 33.6 pg (29.0-33.0); MEAN CORPUSCULAR HGB CONC 35.2 g/dl (32.0-37.0); MEAN CORPUSCULAR VOLUME 95.6 fl (82.0-101.0); MONOCYTE # 0.5 10^3/ul (0.3-0.9); MONOCYTES % 11.3 % (0.0-11.0); PLATELET COUNT 170 10^3/UL (140-415); RED BLOOD COUNT 4.58 10^6/ul (4.70-6.10); RED CELL DISTRIBUTION WIDTH 12.8 % (11.5-14.5); WHITE BLOOD COUNT 4.4 10^3/ul (4.8-10.8)
[2016-09-20 15:49] LABS: ALBUMIN 4.2 g/dl (3.3-4.9); CHLORIDE 102 mmol/L (97-110)
[2016-09-20 15:50] LABS: SODIUM 142 mmol/L (135-144)
[2016-09-20 15:52] LABS: BILIRUBIN,INDIRECT 1.4 mg/dl (0-1.1); BILIRUBIN,TOTAL 1.4 mg/dl (0.2-1.3); CREATININE 1.01 mg/dl (0.61-1.24)
[2016-09-20 15:53] LABS: ALANINE AMINOTRANSFERASE 35 IU/L (13-69); ALBUMIN/GLOBULIN RATIO 1.55; ALKALINE PHOSPHATASE 37 IU/L (42-121); ANION GAP 15 (8-16); ASPARTATE AMINO TRANSFERASE 30 IU/L (15-46); BLOOD UREA NITROGEN 21 mg/dl (7-20); CARBON DIOXIDE 29 mmol/L (21-31); GLUCOSE 76 mg/dl (70-220); TOTAL PROTEIN 6.9 g/dl (6.1-8.1)
[2016-09-20 15:54] LABS: CALCIUM 9.2 mg/dl (8.4-10.2); CREATINE KINASE 110 IU/L (23-200)
[2016-09-20 15:57] LABS: C-REACTIVE PROTEIN < 0.5 mg/dl (0.0-0.9)
[2016-09-20 16:26] LABS: CK-MB 1.86 ng/ml (0.0-2.4); TROPONIN-I < 0.012 ng/ml (0.00-0.12)
== END | disposition home or self-care (01) ==
LOC: LAB 12:21
PROVIDERS: ATTEND Internal Medicine
DX: M33.90 Dermatopolymyositis, unspecified, organ involvement unspecified (principal)
CPT/HCPCS: 80053; 82550; 82553; 84484; 85025; 85651; 86140

== ENCOUNTER 2016-12-19 20:10 | Emergency (ER) | payer BC ==
[~2016-12-19] VITALS: Ht 172.7 cm; Wt 74.0 kg
[~2016-12-19 20:10] MED LIST changes: +AZAT50TA31 PO; -IMU50 PO
[2016-12-19 20:16] VITALS: Ht 172.7 cm; Wt 74.0 kg
--- NOTE | 2016-12-19 21:01 | ERD ---
ER Documentation Chief Complaint Date/Time DATE: 12/19/16 TIME: 20:58 Chief Complaint got exposed to a pt w/meningitis, just want himself to be checked HPI This patient is a 66-year-old male with past medical history of autoimmune disease presenting to the emergency department after exposure to a patient with meningitis. The patient is currently asymptomatic. 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 He denies dizziness, neck pain, fevers, chills, or other symptoms. He was exposed over the past 2 days. ROS All systems reviewed and are negative except as per history of present illness. Medications Home Meds Reported Medications Hydroxychloroquine Sulfate* (Plaquenil*) 200 Mg Tab, 400 MG PO DAILY, TAB 07/22/16 Azathioprine* (Imuran*) 50 Mg Tab, 50 MG PO QPM, TAB 07/22/16 Azathioprine* (Imuran*) 50 Mg Tab, 100 MG PO QAM, TAB 07/22/16 Aspirin Ec (Aspir 81) 81 Mg Tablet. 07/01/09 Allergies Allergies: Coded Allergies: No Known Drug Allergies (Verified Allergy, Mild, 07/22/16) PMhx/Soc History of Surgery: Yes (tonsileectomy, umbilical hernia repair 's, imguinal hernia repair 2008) Anesthesia Reaction: No Hx Neurological Disorder: Yes (slight lower ext neuropathy tx with chircopracter) Hx Respiratory Disorders: Yes (bronchitis ) Hx Cardiac Disorders: Yes (htn ) Hx Psychiatric Problems: No Hx Miscellaneous Medical Probl: No Hx Alcohol Use: Yes (1 glass wine daily ) Hx Substance Use: No Hx Tobacco Use: No Physical Exam Vitals Vital Signs Date Time Temp Pulse Resp B/P Pulse Ox O2 Delivery O2 Flow Rate FiO2 12/19/16 20:16 97.8 68 18 142/81 100 Physical Exam Const: Nontoxic, well-appearing male in no acute distress. Head: Atraumatic Eyes: Normal Conjunctiva ENT: Normal External Ears, Nose and Mouth. Neck: Full range of motion..~ No meningismus. Resp: Clear to auscultation bilaterally Cardio: Regular rate and rhythm, no murmurs Skin: No petechiae or rashes Back: No midline or flank tenderness Ext: No cyanosis, or edema Neur: Awake and alert Psych: Normal Mood and Affect Results 24 hrs Current Medications Medications (Trade) Dose Ordered Sig/Isaac Route PRN Reason Start Time Stop Time Status Last Admin Dose Admin Ciprofloxacin (Cipro) 500 mg ONCE ONCE PO 12/19/16 21:30 12/19/16 21:31 Procedures/MDM 66-year-old male presenting to the emergency department seeking prophylactic treatment for meningitis after being exposed. The patient has no meningeal signs. I will give him 1 dose of 500 mg ciprofloxacin orally in the department as a prophylactic treatment for meningitis. He requires no further treatment and may continue his job duties as normal. Strict ER return precautions were discussed. He is to follow-up closely with his primary care physician in the next 1-2 days. Departure Diagnosis: Primary Impression: Prophylactic antibiotic Condition: PEPE Montague PA-C Dec 19, 2016 21:01
[2016-12-19] MEDS ORDERED: CIPROFLOXACIN 500 MG TAB PO ONE (21:30)
== END 2016-12-19 21:34 | disposition home or self-care (01) ==
LOC: FTE 20:10
DX: Z20.811 Contact with and (suspected) exposure to meningococcus (principal); I10 Essential (primary) hypertension; Z79.82 Long term (current) use of aspirin
CPT/HCPCS: 99283

== ENCOUNTER 2017-04-27 21:55 | Inpatient (IN) | payer BC ==
[~2017-04-27] VITALS: Ht 172.7 cm; Wt 74.1 kg
[2017-04-27] MEDS ORDERED: ASPIRIN 325 MG TAB PO STA (22:17)
[2017-04-27 22:49] LABS: BASOPHILS % 0.9 % (0.0-2.0); EOSINOPHILS # 0.1 10^3/ul (0.0-0.5); EOSINOPHILS % 1.1 % (0.0-7.0); HEMOGLOBIN 16.4 g/dl (14.0-18.0); LYMPHOCYTES # 0.9 10^3/ul (0.8-2.9); LYMPHOCYTES % 19.9 % (15.0-51.0); MEAN CORPUSCULAR HEMOGLOBIN 33.3 pg (29.0-33.0); MEAN CORPUSCULAR HGB CONC 34.2 g/dl (32.0-37.0); MEAN CORPUSCULAR VOLUME 97.6 fl (82.0-101.0); MEAN PLATELET VOLUME 10.1 fl (7.4-10.4); MONOCYTE # 0.4 10^3/ul (0.3-0.9); MONOCYTES % 9.2 % (0.0-11.0); NEUTROPHIL # 3.2 10^3/ul (1.6-7.5); NEUTROPHILS % 68.7 % (39.0-77.0); PLATELET COUNT 197 10^3/UL (140-415); RED BLOOD COUNT 4.92 10^6/ul (4.70-6.10); RED CELL DISTRIBUTION WIDTH 13.2 % (11.5-14.5); WHITE BLOOD COUNT 4.7 10^3/ul (4.8-10.8)
[2017-04-27 23:08] LABS: CALCIUM 9.5 mg/dl (8.4-10.2); CREATININE 1.18 mg/dl (0.61-1.24); POTASSIUM 4.1 mmol/L (3.5-5.1)
[2017-04-27 23:20] LABS: TROPONIN-I 0.024 ng/ml (0.00-0.12)
--- NOTE | 2017-04-27 23:47 | RADRPT ---
PROCEDURE: XR Chest. CLINICAL INDICATION: Chest pain. TECHNIQUE: AP Portable chest. COMPARISON: 07/25/2016 FINDINGS: There is mild cardiomegaly. The lungs are clear. The osseous structures are unremarkable. IMPRESSION: No acute findings. RPTAT: HIKT .Talib Hawthorne MD, Date Time Electronically viewed and signed by .Talib Hawthorne MD, on 04/27/2017 23:46 .T/
[2017-04-28] VITALS (9 sets, daily range): BP systolic 134–141; BP diastolic 67–83; PULSE 49–77; RESP 18; TEMP 98.1; Ht 172.7 cm; Wt 74.1 kg
[2017-04-28] MEDS ORDERED: TAMSULOSIN (SR) 0.4 MG CAP PO ONE ×3 (00:30→10:30)
[2017-04-28] MEDS ORDERED: TAMS0.4C2 PO (00:39)
[2017-04-28] MEDS ORDERED: ACETAMINOPHEN 325 MG TAB PO PRN (01:00)
[2017-04-28] MEDS ORDERED: ONDANSETRON 4 MG INJ IV PRN (01:00)
--- NOTE | 2017-04-28 01:24 | ERD ---
ER Documentation Chief Complaint Chief Complaint chest pain around 30 minutes ago. denies cp during intake HPI This 67-year-old male comes for chest pain that began 30 minutes ago. Also is felt like he had a racing heart rate. Chest pain resolved spontaneously. Is no shortness of breath. Denies any nausea vomiting. 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 Denies fever and chills. ROS All systems reviewed and are negative except as per history of present illness. Medications Home Meds Reported Medications Tamsulosin Hcl* (Tamsulosin Hcl*) 0.4 Mg Cap.er.24h, 0.4 MG PO HS, CAP 04/28/17 Hydroxychloroquine Sulfate* (Plaquenil*) 200 Mg Tab, 400 MG PO DAILY, TAB 07/22/16 Azathioprine* (Imuran*) 50 Mg Tab, 50 MG PO QPM, TAB 07/22/16 Azathioprine* (Imuran*) 50 Mg Tab, 100 MG PO QAM, TAB 07/22/16 Aspirin Ec (Aspir 81) 81 Mg Tablet. 07/01/09 Allergies Allergies: Coded Allergies: No Known Drug Allergies (Verified Allergy, Mild, 04/27/17) PMhx/Soc History of Surgery: Yes (tonsileectomy, umbilical hernia repair , inguinal hernia repair 2008) Anesthesia Reaction: No Hx Neurological Disorder: Yes (slight lower ext neuropathy tx with chircopracter) Hx Respiratory Disorders: Yes (bronchitis ) Hx Cardiac Disorders: Yes (htn ) Hx Psychiatric Problems: No Hx Miscellaneous Medical Probl: Yes (shingles, autoimmune d/s) Hx Alcohol Use: Yes (OCCASSIONAL HAD 1 BEER TONIGHT) Hx Substance Use: No Hx Tobacco Use: No Smoking Status: Never smoker Physical Exam Vitals Vital Signs Date Time Temp Pulse Resp B/P Pulse Ox O2 Delivery O2 Flow Rate FiO2 04/28/17 00:01 98.1 76 20 151/79 98 Nasal Cannula 2.0 04/27/17 23:42 98.1 129 20 152/93 98 Nasal Cannula 2.0 04/27/17 22:20 74 20 152/93 98 Nasal Cannula 2.0 04/27/17 22:20 Nasal Cannula 2 04/27/17 22:01 98.1 71 20 174/85 97 Physical Exam Const: [] Head: Atraumatic Eyes: Normal Conjunctiva ENT: Normal External Ears, Nose and Mouth. Neck: Full range of motion..~ No meningismus. Resp: Clear to auscultation bilaterally Cardio: Regular rate and rhythm, no murmurs Abd: Soft, non tender, non distended. Normal bowel sounds Skin: No petechiae or rashes Back: No midline or flank tenderness Ext: No cyanosis, or edema Neur: Awake and alert Psych: Normal Mood and Affect Result Diagram: 04/27/17223904/27/172239 Results 24 hrs Laboratory Tests Test 04/27/17 22:40 White Blood Count 4.710^3/ul Red Blood Count 4.9210^6/ul Hemoglobin 16.4g/dl Hematocrit 48.0% Mean Corpuscular Volume 97.6fl Mean Corpuscular Hemoglobin 33.3pg Mean Corpuscular Hemoglobin Concent 34.2g/dl Red Cell Distribution Width 13.2% Platelet Count 13354^3/UL Mean Platelet Volume 10.1fl Neutrophils % 68.7% Lymphocytes % 19.9% Monocytes % 9.2% Eosinophils % 1.1% Basophils % 0.9% Nucleated Red Blood Cells % 0.0/100WBC Neutrophils # 3.210^3/ul Lymphocytes # 0.910^3/ul Monocytes # 0.410^3/ul Eosinophils # 0.110^3/ul Basophils # 0.010^3/ul Nucleated Red Blood Cells # 0.010^3/ul Sodium Level 143mmol/L Potassium Level 4.1mmol/L Chloride Level 104mmol/L Carbon Dioxide Level 29mmol/L Anion Gap 14 Blood Urea Nitrogen 24mg/dl Creatinine 1.18mg/dl Glucose Level 99mg/dl Calcium Level 9.5mg/dl Troponin I 0.024ng/ml B-Type Natriuretic Peptide 467PG/ML Current Medications Medications (Trade) Dose Ordered Sig/Isaac Route PRN Reason Start Time Stop Time Status Last Admin Dose Admin Aspirin (Aspirin) 325 mg ONCE STAT PO 04/27/17 22:17 04/27/17 22:18 DC 04/27/17 23:21 Tamsulosin HCl (Flomax) 0.4 mg ONCE ONCE PO 04/28/17 00:30 04/28/17 00:44 DC 04/28/17 01:02 Ondansetron HCl (Zofran Inj) 4 mg ER BRIDGE PRN IV NAUSEA AND/OR VOMITING 04/28/17 01:00 04/29/17 00:59 Acetaminophen (Tylenol Tab) 650 mg ER BRIDGE PRN PO MILD PAIN/FEVER 04/28/17 01:00 04/29/17 00:59 Procedures/MDM Chest pain with concerning EKG changes as well as sudden paroxysmal tachycardia that spontaneously converted back to rate of 70s. Initial troponin is negative. Patient was given aspirin. Slight elevation of BNP. Chest pain also intermittently resolves. Administered 500 cc of normal saline patient may be dehydrated as BNP is elevated. Admit him to telemetry to Dr. Walden for further monitoring and cardiac evaluation. Troponins will be trended. EKG interpretation: EKG #1: Sinus origin of rhythm with bigeminy, right bundle branch block, normal axis, T-wave inversions in all precordial leads concerning for ischemia. Normal intervals. EKG #2 interpretation: Sinus rhythm with premature atrial complexes, rate of 71 , normal axis, T-wave inversions in all precordial leads concerning for acute ischemia,normal intervals. legal transcriber interpretation: Alternating sinus rhythm with premature complexes as suddenly turns to sinus tachycardia rate of 120s and 130s still having P waves and still having premature atrial beats. Chest x-ray interpretation: I see no acute process. I see no widened mediastinum, pneumothorax, no palmar edema, no fractures. Departure Diagnosis: Primary Impression: Chest pain Additional Impressions: Cardiac arrhythmia EKG abnormalities Condition: Serious JOSEF JOYA DO Apr 28, 2017 01:24
[2017-04-28] MEDS ORDERED: SOD CHLORIDE 0.9% 500 ML IV ONE (01:30)
[2017-04-28] MEDS ORDERED: MAGNESIUM SULFATE 2 GM/50 ML 50 ML IVPB ONE (03:30)
[2017-04-28] MEDS: D5W-0.45 NACL + KCL 20 MEQ 1,000 ML IV SCH ×2 (03:35→11:30)
[2017-04-28] MEDS ORDERED: ASPIRIN (EC) 81 MG TAB PO SCH (09:30)
[2017-04-28] MEDS ORDERED: HYDROXYCHLOROQUINE 200 MG TAB PO SCH ×2 (09:30→21:00)
[2017-04-28] MEDS ORDERED: TAMSULOSIN (SR) 0.4 MG CAP PO SCH ×3 (09:30→21:00)
[2017-04-28] MEDS ORDERED: AZATHIOPRINE 50 MG TAB PO SCH ×2 (09:30→21:00)
[2017-04-28 09:46] LABS: CK-MB 1.86 ng/ml (0.0-2.4); TROPONIN-I 0.026 ng/ml (0.00-0.12)
--- NOTE | 2017-04-28 11:10 | CONS ---
Date/Time of Note Date/Time of Note DATE: 04/28/17 TIME: 10:58 Assessment/Plan Assessment/Plan Chief Complaint/Hosp Course 67-year-old male with history of benign prostatic hypertrophy has been on tamsulosin 0.4 mg twice a day, he did lower the dose to once a day recently. He presented to the emergency room because of chest pain and heart palpitation. Then he was not able to urinate and attempts by the nursing staff to catheterize him were not successful. I did insert a 16 Uzbek Soria catheter for him and over 700 mL of urine drained out. The urine was clear. The plan is to continue him on Flomax 0.4 mg twice a day. Await the cardiology workup. Then we could discontinue the Soria catheter and see if he is able to void. I had in the past and again today discussed with him transurethral resection of the prostate, the benefits the risks the time off from work. Hopefully he will be able to urinate after the catheter is removed. 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 He was initially suspected to have heart problems and he is feeling better now and awaiting to see the radiopharmacist. After his admission he was urinating very often and small amount. He was found to have urinary retention and attempts by the nursing staff to catheterize him were not successful. He is known to have a history of benign prostatic hypertrophy and has been taking tamsulosin 0.4 mg twice a day. He did cut it to once a day in the past few weeks and was doing well until this admission. Constitutional: no complaints Eyes: no complaints ENT: no complaints Respiratory: no complaints Cardiovascular: chest pain, palpitations Gastrointestinal: no complaints Genitourinary: other (Urinary retention) Musculoskeletal: no complaints Skin: no complaints Neurologic: no complaints Endocrine: no complaints Lymphatic: no complaints Psychological: nl mood/affect Past Medical History Medical History: hypertension, other (History of migraine headaches, shingles and lower extremities neuropathy, bronchitis) Past Surgical History Past Surgical Hx: other (Umbilical hernia repair, inguinal hernia repair and tonsillectomy) Family History Significant Family History: no pertinent family hx Social History Alcohol Use: occasionally (1 beer the night of admission) Smoking Status: Never smoker Exam/Review of Systems Vital Signs Vitals Vital Signs Date Time Temp Pulse Resp B/P Pulse Ox O2 Delivery O2 Flow Rate FiO2 04/28/17 09:03 49 04/28/17 08:12 97.9 141/67 98 04/28/17 06:30 18 04/28/17 00:01 Nasal Cannula 2.0 Exam Constitutional: alert, oriented Psych: nl mood/affect Head: atraumatic, normocephalic Eyes: nl conjunctiva ENMT: nl external ears & nose Neck: supple Respiratory: normal air movement Cardiovascular: No jugular venous distention (JVD) Gastrointestinal: tender (Suprapubic tenderness because of bladder distention) Genitourinary - Male: nl penis, nl scrotum, other (Urinary retention), No CVA tenderness Extremities: No calf tenderness Neurological: nl speech, nl strength Results Result Diagram: 04/27/17223904/27/172239 Results 24 hrs Laboratory Tests Test 04/27/17 22:40 04/28/17 07:47 White Blood Count 4.7 L Red Blood Count 4.92 Hemoglobin 16.4 Hematocrit 48.0 Mean Corpuscular Volume 97.6 Mean Corpuscular Hemoglobin 33.3 H Mean Corpuscular Hemoglobin Concent 34.2 Red Cell Distribution Width 13.2 Platelet Count 197 Mean Platelet Volume 10.1 Neutrophils % 68.7 Lymphocytes % 19.9 Monocytes % 9.2 Eosinophils % 1.1 Basophils % 0.9 Nucleated Red Blood Cells % 0.0 Neutrophils # 3.2 Lymphocytes # 0.9 Monocytes # 0.4 Eosinophils # 0.1 Basophils # 0.0 Nucleated Red Blood Cells # 0.0 Sodium Level 143 Potassium Level 4.1 Chloride Level 104 Carbon Dioxide Level 29 Anion Gap 14 Blood Urea Nitrogen 24 H Creatinine 1.18 Glucose Level 99 Calcium Level 9.5 Troponin I 0.024 0.026 B-Type Natriuretic Peptide 467 H Creatine Kinase 77 Creatine Kinase Index 2.4 Creatinine Kinase MB (Mass) 1.86 Medications Medications Current Medications Potassium Chloride/Dextrose/ Sod Cl (D5-1/2ns + KCl 20 Meq) 1,000 ml @ 125 mls/ hr Q8H IV Last administered on 04/28/17 03:35; Admin Dose 125 MLS/HR; Start 04/28/17 at 03:30 Aspirin (Halfprin) 81 mg DAILY PO Last administered on 04/28/17 10:16; Admin Dose 81 MG; Start 04/28/17 at 09:30 Azathioprine (Imuran) 50 mg QPM PO ; Start 04/28/17 at 21:00 Azathioprine (Imuran) 100 mg QAM PO Last administered on 04/28/17 10:25; Admin Dose 100 MG; Start 04/28/17 at 09:30 Hydroxychloroquine Sulfate (Plaquenil) 400 mg DAILY PO Last administered on 10:16; Admin Dose 400 MG; Start 04/28/17 at 09:30 Tamsulosin HCl (Flomax) 0.4 mg BID PO ; Start 04/28/17 at 21:00 KRISTOFER OWENS MD Apr 28, 2017 11:10
[2017-04-28] MEDS ORDERED: FINASTERIDE 5 MG TAB PO SCH (13:30)
--- NOTE | 2017-04-28 13:53 | RADRPT ---
Echocardiogram Report Patient Name: JESSE OWEN Gender: Male Date: 1950 Study Date: 28-Apr-2017 Director Trading: [facility] Location: [facility] Ref. Physician: PHILLIP PARDO Quality: Adequate Procedures: Transthoracic echocardiogram with complete 2D, M-Mode, and doppler examination. Indications: Chest Pain. 2D/M Mode Doppler Measurement Value Normal Ranges Measurement Value Normal Ranges LVIDd 2D 4.3 3.5 - 5.6 cm AV Peak Lyndon 1.3 m/sec LVIDs 2D 2.8 2.1 - 4.1 cm AV Peak PG 7.0 mmHg FS 2D 36.3 % LVOT Peak Lyndon 1.0 m/sec LVPWd 2D 1.3 0.6 - 1.1 cm LVOT Peak PG 4.0 mmHg IVSd 2D 1.3 0.6 - 1.1 cm MV E Peak Lyndon 0.7 m/sec IVS/LVPW 2D 1.0 MV A Peak Lyndon 0.6 m/sec AoR Diam 2D 2.9 2.0 - 3.7 cm MV E/A 1.1 LA/Ao 2D 1 0 - 1 MV Decel Time 211 msec EDV 2D 81.2 cm3 MV E/A 1.1 ESV 2D 21.0 cm3 TR Peak Lyndon 2.5 m/sec LA Dimen 2D 3.9 2.3 - 4.0 cm TR Peak PG 24.0 mmHg RVSP 27.0 mmHg Findings Left Ventricle: Normal left ventricular systolic function. Normal left ventricular cavity size. Mild concentric left ventricular hypertrophy. Ejection fraction is visually estimated at 60 %. Abnormal Diastolic Function. Right Ventricle: Normal right ventricular size. Normal right ventricular systolic function. Left Atrium: The left atrium is normal in size. Right Atrium: The right atrium is normal in size. Mitral Valve: Mild mitral leaflet calcification. Mild mitral annular calcification. Trace mitral regurgitation. Aortic Valve: No significant aortic stenosis. Aortic cusps appear mildly calcified. Trace aortic valve regurgitation. Tricuspid Valve: Normal appearance and function of the tricuspid valve with trace physiologic regurgitation. Estimated peak PA systolic pressure 27 mmHg. Pulmonic Valve: Pulmonic valve not well visualized. There is trace pulmonic regurgitation. Pericardium: Normal pericardium with no significant pericardial effusion. Aorta: Normal aortic root. IVC: Normal size and normal respiratory collapse consistent with normal right atrial pressure. Conclusions Normal left ventricular systolic function. Normal left ventricular cavity size. Mild concentric left ventricular hypertrophy. Ejection fraction is visually estimated at 60 %. Abnormal Diastolic Function. Normal right ventricular size. Normal right ventricular systolic function. The left atrium is normal in size. The right atrium is normal in size. No significant valvular stenosis or regurgitation seen. Normal pericardium with no significant pericardial effusion. Electronically Signed By: Phillip Pardo 28-Apr-2017 13:52:34 -0800 Patient Name: JESSE OWEN Study Date: 28-Apr-[id number]
[2017-04-28] MEDS ORDERED: REGADENOSON 0.4 MG/5 ML SYG ONE (14:57)
--- NOTE | 2017-04-28 15:23 | CONS ---
Date/Time of Note Date/Time of Note DATE: 04/28/17 TIME: 15:16 Assessment/Plan Assessment/Plan Additional Assessment/Plan Chest discomfort Preserved ejection fraction Frequent PACs Hypertension Possible history of dermatomyositis Urinary retention status post Soria -Patient with symptoms of chest discomfort yesterday evening which was not exertional. He denies any exertional chest pain or shortness of breath throughout his daily activities as well as his regular exercise regimen. 2 sets of cardiac enzymes have remained negative, echocardiogram with preserved ejection fraction. His ECG does have T-wave abnormalities but on review of report from July 2016, this appears similar to then. I will request to see the ECG itself. Given his symptoms and risk factors, would proceed with cardiac perfusion study. Consultation Date/Type/Reason Admit Date/Time Apr 28, 2017 at 00:38 Type of Consultation: cv Reason for Consultation Chest pain Hx of Present Illness This is a 67-year-old male with past medical history of hypertension, diet and exercise controlled, dermatomyositis, BPH who presents with chest discomfort. 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 Later that evening, patient was going from a sitting to standing position, he did get this sudden onset of chest pressure. This could have possibly been associated with palpitations. There was associated shortness of breath but no diaphoresis. He did check his blood pressure and systolic was in the 170s. He denies his name and taken to the hospital. His symptoms resolved in approximately 15 minutes. He has also noticed that his heart rate was in the 120s at that time. He has had no further episodes since then. He is otherwise an active gentleman. He does exercise 3-4 times a week with weightlifting and cardiovascular activity with no chest discomfort. He does have a known history of frequent PACs. He does tell me he has had an upper respiratory tract infection over the past week has been taking multiple homeopathic and herbal medications. 12 point review of systems was performed with all pertinent positives and negatives mentioned above and all else is negative Past Medical History Medical History: hypertension, other (History of migraine headaches, shingles and lower extremities neuropathy, bronchitis) Past Surgical History Past Surgical Hx: other (Umbilical hernia repair, inguinal hernia repair and tonsillectomy) Family History Significant Family History: no pertinent family hx Social History Alcohol Use: occasionally (1 beer the night of admission) Smoking Status: Never smoker Other Social History Works as a nurse Exam/Review of Systems Vital Signs Vitals Vital Signs Date Time Temp Pulse Resp B/P Pulse Ox O2 Delivery O2 Flow Rate FiO2 04/28/17 12:10 57 04/28/17 08:12 97.9 141/67 98 04/28/17 06:30 18 04/28/17 00:01 Nasal Cannula 2.0 Exam No apparent distress, sitting in chair Constitutional: alert, oriented, well developed Head: normocephalic Neck: supple Respiratory: clear to auscultation, normal air movement Cardiovascular: other (S1-S2 heard), regular rate and rhythm (With occasional irregularities) Gastrointestinal: bowel sounds, non-tender, soft Genitourinary - Male: other (Soria present) Extremities: other (No edema) Results Result Diagram: 04/27/17223904/27/170 Results 24 hrs Laboratory Tests Test 04/27/17 22:40 04/28/17 07:47 White Blood Count 4.7 L Red Blood Count 4.92 Hemoglobin 16.4 Hematocrit 48.0 Mean Corpuscular Volume 97.6 Mean Corpuscular Hemoglobin 33.3 H Mean Corpuscular Hemoglobin Concent 34.2 Red Cell Distribution Width 13.2 Platelet Count 197 Mean Platelet Volume 10.1 Neutrophils % 68.7 Lymphocytes % 19.9 Monocytes % 9.2 Eosinophils % 1.1 Basophils % 0.9 Nucleated Red Blood Cells % 0.0 Neutrophils # 3.2 Lymphocytes # 0.9 Monocytes # 0.4 Eosinophils # 0.1 Basophils # 0.0 Nucleated Red Blood Cells # 0.0 Sodium Level 143 Potassium Level 4.1 Chloride Level 104 Carbon Dioxide Level 29 Anion Gap 14 Blood Urea Nitrogen 24 H Creatinine 1.18 Glucose Level 99 Calcium Level 9.5 Troponin I 0.024 0.026 B-Type Natriuretic Peptide 467 H Creatine Kinase 77 Creatine Kinase Index 2.4 Creatinine Kinase MB (Mass) 1.86 Medications Medications Current Medications Potassium Chloride/Dextrose/ Sod Cl (D5-1/2ns + KCl 20 Meq) 1,000 ml @ 125 mls/ hr Q8H IV Last administered on 04/28/17 03:35; Admin Dose 125 MLS/HR; Start 04/28/17 at 03:30 Aspirin (Halfprin) 81 mg DAILY PO Last administered on 04/28/17 10:16; Admin Dose 81 MG; Start 04/28/17 at 09:30 Azathioprine (Imuran) 50 mg QPM PO ; Start 04/28/17 at 21:00 Azathioprine (Imuran) 100 mg QAM PO Last administered on 04/28/17 10:25; Admin Dose 100 MG; Start 04/28/17 at 09:30 Hydroxychloroquine Sulfate (Plaquenil) 400 mg DAILY PO Last administered on 10:16; Admin Dose 400 MG; Start 04/28/17 at 09:30 Tamsulosin HCl (Flomax) 0.4 mg BID PO ; Start 04/28/17 at 21:00 Finasteride (Proscar) 5 mg DAILY PO ; Start 04/28/17 at 13:30 Procedures Procedures Sinus rhythm with frequent PACs, right bundle branch block, diffuse T-wave abnormalities Phillip Pardo DO Apr 28, 2017 15:23
--- NOTE | 2017-04-28 15:46 | HP ---
Date/Time of Note Date/Time of Note DATE: 04/28/17 TIME: 15:38 Assessment/Plan VTE Prophylaxis VTE Prophylaxis Intervention: heparin Lines/Catheters IV Catheter Type (from Nrs): Saline Lock Assessment/Plan Problems: (1) Chest pain Status: Acute Comment: He has been seen in cardiology consultation. Will go through formalized rule out protocol and then do perfusion study. While my index of suspicion is not terribly high do not want take any chances here. Qualifiers: Chest pain type: precordial pain Qualified Code: R07.2 - Precordial pain (2) Cardiac arrhythmia Status: Acute Comment: Cardiology consultation assisting. Qualifiers: Arrhythmia type: supraventricular tachycardia Qualified Code: I47.1 - Supraventricular tachycardia (3) BPH w urinary obs/LUTS Status: Chronic Comment: He has had some worsening symptoms and can add in finasteride to his treatment he has been seen in consultation by urology (4) Psoriasis Status: Chronic Comment: Noted. Continue his medications (5) Peripheral neuropathy Status: Chronic Comment: Stable and unchanged. 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 (7) Dermatomyositis Status: Chronic Comment: Quiescent. (8) Positive ALEXANDREA (antinuclear antibody) Status: Chronic Comment: Noted. (9) Antiphospholipid antibody positive Status: Chronic Comment: Noted. HPI/ROS Admit Date/Time Admit Date/Time Apr 28, 2017 at 00:38 Hx of Present Illness Charming 67-year-old male admitted with a brief history of chest pain. He is a non-smoker nondiabetic who has no history of hyperlipidemia or hypertension. Family history is also negative for coronary disease. He is been in his usual state of health and developed exertional chest pain. Please see the history obtained by the ambulatory analyst in the emergency room doctors. ROS Constitutional: no complaints (No fevers chills or sweats) Eyes: no complaints ENT: no complaints Respiratory: no complaints Cardiovascular: chest pain (There was briefly some shortness of breath. Associated with this without nausea vomiting or diaphoresis), palpitations Gastrointestinal: no complaints Genitourinary: other (Urinary retention) Musculoskeletal: no complaints Skin: no complaints Neurologic: no complaints Lymphatic: no complaints Psychological: nl mood/affect PMH/Family/Social Past Medical History Medical History: hypertension, other (History of migraine headaches, shingles and lower extremities neuropathy, bronchitis; dermatomyositis; positive ALEXANDREA; positive antiphospholipid antibody; psoriasis; benign positional vertigo; benign prostatic hypertrophy; history of HSV-2) Past Surgical History Past Surgical Hx: other (Umbilical hernia repair, inguinal hernia repair and tonsillectomy) Family History Significant Family History: hypertension (; Status post left knee arthroscopy; status post tonsillectomy), other (Positive osteoporosis) Social History Born in [place] and raised there he has not RN degree as well as 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 Alcohol Use: occasionally (1 beer the night of admission) Smoking Status: Never smoker Drug Use: none Exam/Review of Systems Vital Signs Vitals Vital Signs Date Time Temp Pulse Resp B/P Pulse Ox O2 Delivery O2 Flow Rate FiO2 04/28/17 12:10 57 04/28/17 08:12 97.9 141/67 98 04/28/17 06:30 18 04/28/17 00:01 Nasal Cannula 2.0 Exam Constitutional: alert, oriented Head: atraumatic, normocephalic Eyes: EOMI, PERRL, nl conjunctiva, nl lids, nl sclera ENMT: mucosa pink and moist, nl external ears & nose, nl lips & teeth, nl nasal mucosa & septum Neck: non-tender, supple Respiratory: clear to auscultation, normal air movement Cardiovascular: nl pulses, regular rate and rhythm Gastrointestinal: nl liver, spleen, non-tender, soft Musculoskeletal: nl extremities to inspection, nl gait and stance Labs Result Diagram: 04/27/17223904/27/172239 Medications Medications Outpatient medications; as a thyroid screen 50 mg morning 100 mg evening; aspirin 81 mg a day; tamsulosin 0.4 twice daily; sialoliths 5 mg once a day; Plaquenil 200 twice daily Current Medications Potassium Chloride/Dextrose/ Sod Cl (D5-1/2ns + KCl 20 Meq) 1,000 ml @ 125 mls/ hr Q8H IV Last administered on 04/28/17t 03:35; Admin Dose 125 MLS/HR; Start 04/28/17 at 03:30 Aspirin (Halfprin) 81 mg DAILY PO Last administered on 04/28/17 10:16; Admin Dose 81 MG; Start 04/28/17 at 09:30 Azathioprine (Imuran) 50 mg QPM PO ; Start 04/28/17 at 21:00 Azathioprine (Imuran) 100 mg QAM PO Last administered on 04/28/17 10:25; Admin Dose 100 MG; Start 04/28/17 at 09:30 Hydroxychloroquine Sulfate (Plaquenil) 400 mg DAILY PO Last administered on 10:16; Admin Dose 400 MG; Start 04/28/17 at 09:30 Tamsulosin HCl (Flomax) 0.4 mg BID PO ; Start 04/28/17 at 21:00 Finasteride (Proscar) 5 mg DAILY PO ; Start 04/28/17 at 13:30 JOSEF VAN MD Apr 28, 2017 15:46
--- NOTE | 2017-04-28 16:26 | RADRPT ---
PROCEDURE: Lexiscan myocardial perfusion study CLINICAL INDICATION: 67 -year-old patient complaining of chest pain. TECHNIQUE: Lexiscan 0.4 mg intravenously separate acquisition gated myocardial perfusion SPECT usi ng Tc 99m Myoview 30.5 mCi intravenously at stress and Tc-99m Myoview, 10.7 mCi intravenously at res t was performed using the rest/stress sequence. Poststress Myoview SPECT images were obtained in th e supine position. COMPARISON: Previous study dated November 21, 2008 is not available for correlation at the time of thi s interpretation. FINDINGS: Perfusion images reveal no evidence of perfusion defects. Lexiscan post stress gated SPECT images demonstrate no wall motion abnormalities. IMPRESSION: 1. No evidence of perfusion defects. 2. No wall motion abnormalities. 3. The left ventricle ejection fraction at stress is 55%. A call report was made to Dr. Pardo at 04:25 p.m. on April 28, 2017. RPTAT: HH .Margy Ordonez MD, Date Time Electronically viewed and signed by .Margy Ordonez MD, on 04/28/2017 16:26 .L/
--- NOTE | 2017-04-28 17:22 | DS ---
Date/Time of Note Date/Time of Note DATE: 04/28/17 TIME: 17:20 Discharge Summary Admission/Discharge Info Admit Date/Time Apr 28, 2017 at 00:38 Discharge Date/Time April 28, 2017 Discharge Diagnosis Noncardiac chest pain; benign prostatic hypertrophy with lower urinary tract obstruction; hyperlipidemia; mixed connective tissue disorder Patient Condition: Fair Consults Urology-Dr. Siddiqui; cardiology-Dr. Pardo Procedures Rule out LA protocol; nuclear medicine cardiac stress test; Soria catheter Hx of Present Illness Charlatoya 67-year-old male admitted with a brief history of chest pain. He is a non-smoker nondiabetic who has no history of hyperlipidemia or hypertension. Family history is also negative for coronary disease. He is been in his usual state of health and developed exertional chest pain. Please see the history obtained by the ekg tech in the emergency room doctors. Hospital Course Patient was admitted and stabilized. He ruled out biochemically for cardiac ischemia. He underwent formalized nuclear medicine stress testing which fortunately was not unremarkable. He is now stable for discharge. The major medical issue for him is his urinary obstruction will be discharged with an indwelling Soria catheter will follow up with urology in the next week. Home Meds Reported Medications Tamsulosin Hcl* (Tamsulosin Hcl*) 0.4 Mg Cap.er.24h, 0.4 MG PO HS, CAP 04/28/17 Hydroxychloroquine Sulfate* (Plaquenil*) 200 Mg Tab, 400 MG PO DAILY, TAB 07/22/16 Azathioprine* (Imuran*) 50 Mg Tab, 50 MG PO QPM, TAB 07/22/16 Azathioprine* (Imuran*) 50 Mg Tab, 100 MG PO QAM, TAB 07/22/16 Aspirin Ec (Aspir 81) 81 Mg Tablet. 07/01/09 Follow-up Plan Urology in 1 week; my office in 3 weeks Primary Care Provider Josef Franco MD Time spent on discharge: > 30 minutes Pending Labs Laboratory Tests Test 04/27/17 22:40 04/28/17 07:46 04/28/17 07:47 White Blood Count 4.710^3/ul (4.8-10.8) Red Blood Count 4.9210^6/ul (4.70-6.10) Hemoglobin 16.4g/dl (14.0-18.0) Hematocrit 48.0% (42.0-52.0) Mean Corpuscular Volume 97.6fl (82.0-101.0) Mean Corpuscular Hemoglobin 33.3pg (29.0-33.0) Mean Corpuscular Hemoglobin Concent 34.2g/dl (32.0-37.0) Red Cell Distribution Width 13.2% (11.5-14.5) Platelet Count 53864^3/UL (140-415) Mean Platelet Volume 10.1fl (7.4-10.4) Neutrophils % 68.7% (39.0-77.0) Lymphocytes % 19.9% (15.0-51.0) Monocytes % 9.2% (0.0-11.0) Eosinophils % 1.1% (0.0-7.0) Basophils % 0.9% (0.0-2.0) Nucleated Red Blood Cells % 0.0/100WBC (0.0-0.0) Neutrophils # 3.210^3/ul (1.6-7.5) Lymphocytes # 0.910^3/ul (0.8-2.9) Monocytes # 0.410^3/ul (0.3-0.9) Eosinophils # 0.110^3/ul (0.0-0.5) Basophils # 0.010^3/ul (0.0-0.1) Nucleated Red Blood Cells # 0.010^3/ul (0.0-0.0) Sodium Level 143mmol/L (135-144) Potassium Level 4.1mmol/L (3.5-5.1) Chloride Level 104mmol/L (97-110) Carbon Dioxide Level 29mmol/L (21-31) Anion Gap 14 (8-16) Blood Urea Nitrogen 24mg/dl (7-20) Creatinine 1.18mg/dl (0.61-1.24) Glucose Level 99mg/dl (70-220) Calcium Level 9.5mg/dl (8.4-10.2) Troponin I 0.024ng/ml (0.00-0.12) 0.026ng/ml (0.00-0.12) B-Type Natriuretic Peptide 467PG/ML (0-125) Magnesium Level 2.2mg/dl (1.7-2.5) Creatine Kinase 77IU/L (23-200) Creatine Kinase Index 2.4 Creatinine Kinase MB (Mass) 1.86ng/ml (0.0-2.4) JOSEF FRANCO MD Apr 28, 2017 17:22
--- NOTE | 2017-04-28 17:23 | PDOCDIS ---
Discharge Instructions DIAGNOSIS Discharge Diagnosis Noncardiac chest pain; benign prostatic hypertrophy with lower urinary tract obstruction; hyperlipidemia; mixed connective tissue disorder CONDITION Patient Condition: Good HOME CARE INSTRUCTIONS: Diet Instructions: Regular ACTIVITY: Activity Restrictions: No Restrictions FOLLOW UP/APPOINTMENTS Follow-up Plan Urology in 1 week; my office in 3 weeks JOSEF VAN MD Apr 28, 2017 17:23
[2017-04-28] MEDS ORDERED: FINA5TAB4 PO (17:24)
[2017-04-28] MEDS ORDERED: TAMS-14 PO (17:24)
[2017-04-28 19:22] LABS: CHOL/HDL RATIO 3.4 RATIO
--- NOTE | 2017-05-01 16:50 | RADRPT ---
Vent Rate: 59 bpm RR Interval: 0 msec [place] Interval: 156 msec QRS Duration: 136 msec QT Interval: 458 msec QTC Interval: 453 msec P-R-T [place]: 51 - 46 - 168 degrees Sinus bradycardia Possible Left atrial enlargement Right bundle branch block T wave abnormality, consider inferolateral ischemia Abnormal ECG Electronically Signed By: Jono Thrasher [id number]
== END 2017-04-28 18:11 | disposition home or self-care (01) | DRG 313 ==
LOC: E/R 21:55 → MS4 04-28 00:38
PROVIDERS: ADMIT Internal Medicine; ATTEND Internal Medicine
DX: R07.89 Other chest pain (principal); D68.61 Antiphospholipid syndrome; M33.90 Dermatopolymyositis, unspecified, organ involvement unspecified; N13.8 Other obstructive and reflux uropathy; I10 Essential (primary) hypertension; N40.1 Benign prostatic hyperplasia with lower urinary tract symptoms; E78.5 Hyperlipidemia, unspecified; I49.1 Atrial premature depolarization; I45.10 Unspecified right bundle-branch block; L40.9 Psoriasis, unspecified
CPT/HCPCS: 36415; 71010; 78452; 80048; 80061; 82550; 82553; 83735; 83880; 84484; 85025; 93005; 93017; 93306; A4310; A9500; A9505; J2785; J3475; J3480; J7040; J7500

== ENCOUNTER → 2017-05-05 | Outpatient (CLI) | END | disposition home or self-care (01) ==

== ENCOUNTER 2017-06-04 13:41 | Emergency (ER) | END 2017-06-04 18:04 | disposition home or self-care (01) ==

== ENCOUNTER 2017-06-19 05:09 | Emergency (ER) | END 2017-06-19 10:06 | disposition home or self-care (01) ==

== ENCOUNTER → 2017-09-01 | Outpatient (CLI) | END | disposition home or self-care (01) ==

== ENCOUNTER → 2018-01-09 | Outpatient (CLI) | END | disposition home or self-care (01) ==

== ENCOUNTER → 2018-03-29 | Outpatient (CLI) | END | disposition home or self-care (01) ==